=== PATIENT | female | born 1940 | race African-American/Black ===

== ENCOUNTER 2022-05-08 10:11 | Emergency (ER) | payer OTHER ==
[~2022-05-08] VITALS: Ht 165.1 cm; Wt 73.0 kg
[2022-05-08] MEDS ORDERED: ACETAMINOPHEN 325MG TABLET PO ONE (10:45)
[2022-05-08 11:33] LABS: BASOPHILS % 0.4 % (0.0-2.0); EOSINOPHILS % 0.3 % (0.0-5.0); HEMATOCRIT. 45.9 % (36.0-48.0); HEMOGLOBIN. 14.9 g/dL (12.0-16.0); LYMPHOCYTES % 7.7 % (20.0-50.0); MEAN CORPUSCULAR HEMOGLOBIN 26.5 pg (28.0-32.0); MEAN CORPUSCULAR VOLUME 81.7 fL (81.0-99.0); MEAN PLATELET VOLUME 8.9 fl (7.4-10.4); MONOCYTES % 9.1 % (2.0-8.0); NEUTROPHILS % 82.5 % (40.0-76.0); PLATELET 163 x1000/uL (130-400); RED BLOOD CELL COUNT 5.61 mill/uL (4.2-5.4)
[2022-05-08 11:43] LABS: CHLORIDE 105 mEq/L (98-107)
[2022-05-08] MEDS ORDERED: TOPUD PO (14:14)
[2022-05-08] MEDS ORDERED: ACETAMINOPHEN 325MG TABLET PO NR (18:30)
[2022-05-08 20:00] VITALS: BP 186/83
== END 2022-05-08 20:51 | disposition short-term general hospital (02) ==
LOC: ER 10:34 → CANBEDREQ 05-09 10:03
DX: M25.552 Pain in left hip (principal); M25.551 Pain in right hip; R41.82 Altered mental status, unspecified; R26.2 Difficulty in walking, not elsewhere classified; M79.18 Myalgia, other site; I10 Essential (primary) hypertension; I69.90 Unspecified sequelae of unspecified cerebrovascular disease; Z79.899 Other long term (current) drug therapy; E78.00 Pure hypercholesterolemia, unspecified; Z20.822 Contact with and (suspected) exposure to COVID-19
CPT/HCPCS: 36415; 70450; 71045; 72170; 80053; 83880; 85025; 87426; 93005; 99285; C9803